=== PATIENT | male | born 1995 | race Caucasian/White ===

== ENCOUNTER 2018-02-23 13:10 | Emergency (ER) | payer MEDICAID, OTHER ==
[~2018-02-23] VITALS: Ht 188 cm; Wt 115.0 kg
[2018-02-23] MEDS ORDERED: SODIUM CHLORIDE 0.9% 1000ML BAG (SEPSIS BOLUS) IV ONE (14:00)
[2018-02-23] MEDS ORDERED: ACETAMINOPHEN 500MG TABLET PO ONE (14:00)
[2018-02-23 14:31] LABS: BASOPHILS % 0.3 % (0.0-2.0); EOSINOPHILS % 0.2 % (0.0-5.0); HEMATOCRIT. 39.4 % (42.0-52.0); HEMOGLOBIN. 13.7 g/dL (14.0-18.0); LYMPHOCYTES % 11.1 % (20.0-50.0); MEAN CORPUSCULAR HEMOGLOBIN 28.9 pg (28.0-32.0); MEAN CORPUSCULAR VOLUME 83.3 fL (80.0-94.0); MEAN PLATELET VOLUME 8.7 fl (7.4-10.4); MONOCYTES % 9.4 % (2.0-8.0); PLATELET 214 x1000/uL (130-400); RED BLOOD CELL COUNT 4.73 mill/uL (4.7-6.1); RED CELL DISTRIBUTION WIDTH 13.1 % (11.6-14.6)
[2018-02-23 14:35] LABS: INR 1.1; PROTHROMBIN TIME 11.7 sec (9.4-11.6)
[2018-02-23 14:40] LABS: CHLORIDE 105 mEq/L (98-107)
[2018-02-23] MEDS: KETOROLAC 30MG/ML VIAL IV ONE ×2 (16:30→17:44)
[2018-02-23 18:45] VITALS: BP 118/76
[2018-02-23 19:30] LABS: CLARITY URINE CLEAR (CLEAR); COLOR URINE YELLOW (YELLOW); KETONES URINE TRACE (NEGATIVE); LEUKOCYTE ESTERASE URINE NEGATIVE (NEGATIVE); NITRITE URINE NEGATIVE (NEGATIVE); OCCULT BLOOD URINE NEGATIVE (NEGATIVE); PH URINE 6.5 (4.5-8.0); PROTEIN URINE NEGATIVE (NEGATIVE); UROBILINOGEN URINE 0.2 E.U./dL (0.2-1.0)
== END 2018-02-23 19:23 | disposition home or self-care (01) ==
LOC: ER 15:30
DX: J02.9 Acute pharyngitis, unspecified (principal); J45.909 Unspecified asthma, uncomplicated; R00.0 Tachycardia, unspecified; Z88.2 Allergy status to sulfonamides
CPT/HCPCS: 36415; 71045; 80053; 81003; 83605; 85025; 85610; 87040; 87070; 87430; 93005; 96361; 96374; 99285; J1885; J7030; J7040; Z7610

== ENCOUNTER 2018-06-28 19:00 | Emergency (ER) | payer OTHER ==
[~2018-06-28] VITALS: Ht 185.4 cm; Wt 109.0 kg
[2018-06-28] MEDS ORDERED: ALBUTEROL (0.083%) 2.5MG/3ML NEB HHN STA (20:09)
[2018-06-28 22:16] VITALS: BP 128/72
== END 2018-06-28 22:32 | disposition home or self-care (01) ==
LOC: ER 19:00
DX: J45.901 Unspecified asthma with (acute) exacerbation (principal)
CPT/HCPCS: 71045; 93005; 94640; 99284; J7611; Z7610

== ENCOUNTER 2018-10-07 18:05 | Emergency (ER) | payer OTHER ==
[~2018-10-07] VITALS: Ht 188 cm; Wt 113.6 kg
[2018-10-07] MEDS ORDERED: KETOROLAC 60MG/2ML VIAL IM ONE (21:30)
[2018-10-07 21:35] VITALS: BP 146/90
== END 2018-10-07 23:26 | disposition home or self-care (01) ==
LOC: ER 18:05
DX: M54.5 Low back pain (principal); M25.511 Pain in right shoulder; J45.909 Unspecified asthma, uncomplicated; Z88.2 Allergy status to sulfonamides; X50.9XXA Other and unspecified overexertion or strenuous movements or postures, initial encounter; Y93.89 Activity, other specified; Y92.89 Other specified places as the place of occurrence of the external cause; Y99.8 Other external cause status
CPT/HCPCS: 72100; 73030; 96372; 99283; J1885

== ENCOUNTER 2020-01-12 21:23 | Inpatient (IN) | payer OTHER ==
[~2020-01-12] VITALS: Ht 182.9 cm; Wt 122.5 kg
[2020-01-12] MEDS ORDERED: SODIUM CHLORIDE 0.9% 1000ML BAG (SEPSIS BOLUS) IV ONE (23:15)
[2020-01-12] MEDS ORDERED: KETOROLAC 30MG/ML VIAL IV ONE (23:30)
[2020-01-12 23:53] LABS: BASOPHILS % 0.8 % (0.0-2.0); EOSINOPHILS % 6.1 % (0.0-5.0); HEMATOCRIT. 42.4 % (42.0-52.0); HEMOGLOBIN. 14.8 g/dL (14.0-18.0); LYMPHOCYTES % 27.9 % (20.0-50.0); MEAN CORPUSCULAR HEMOGLOBIN 28.5 pg (28.0-32.0); MEAN CORPUSCULAR VOLUME 81.5 fL (80.0-94.0); MEAN PLATELET VOLUME 8.8 fl (7.4-10.4); NEUTROPHILS % 57.2 % (40.0-76.0); PLATELET 262 x1000/uL (130-400); RED CELL DISTRIBUTION WIDTH 13.5 % (11.6-14.6)
[2020-01-12 23:54] LABS: CHLORIDE 106 mEq/L (98-107); PROTHROMBIN TIME 10.5 sec (9.6-11.0)
[2020-01-13] MEDS ORDERED: ONDANSETRON HCL 4MG/2ML INJ IV PRN (16:45)
[2020-01-13] MEDS ORDERED: HYDROCODONE/ACETAMINOPHEN 5/325MG TABLET PO PRN (16:45)
[2020-01-13] MEDS ORDERED: ACETAMINOPHEN 325MG TABLET PO PRN (16:45)
[2020-01-13] MEDS ORDERED: IPRATROPIUM/ALBUTEROL 0.5-3(2.5)MG/3ML NEB HHN PRN (16:45)
[2020-01-13] MEDS ORDERED: AZITHROMYCIN 500 MG in DEXT 5% WATER 250 ML IV SCH (21:00)
[2020-01-14] MEDS: ENOXAPARIN 30MG/0.3ML SYR SUBCUT SCH ×2 (00:23→11:08)
[2020-01-14 06:26] LABS: BASOPHILS % 0.8 % (0.0-2.0); EOSINOPHILS % 6.9 % (0.0-5.0); HEMATOCRIT. 40.9 % (42.0-52.0); HEMOGLOBIN. 14.4 g/dL (14.0-18.0); LYMPHOCYTES % 29.4 % (20.0-50.0); MEAN CORPUSCULAR HEMOGLOBIN 28.6 pg (28.0-32.0); MEAN CORPUSCULAR VOLUME 80.9 fL (80.0-94.0); MEAN PLATELET VOLUME 8.8 fl (7.4-10.4); MONOCYTES % 9.3 % (2.0-8.0); NEUTROPHILS % 53.6 % (40.0-76.0); PLATELET 257 x1000/uL (130-400); RED BLOOD CELL COUNT 5.05 mill/uL (4.7-6.1); RED CELL DISTRIBUTION WIDTH 13.3 % (11.6-14.6)
[2020-01-14 06:40] LABS: CHLORIDE 108 mEq/L (98-107)
[2020-01-14 06:47] VITALS: BP 124/80
[2020-01-14 06:52] LABS: CREATINE KINASE MB FRACTION < 1.0 ng/mL (0.5-3.6); LDL CHOLESTEROL 129 mg/dL (5-100)
[2020-01-14 06:53] LABS: HDL CHOLESTEROL 28 mg/dL (40-59)
[2020-01-14 06:54] LABS: T4 FREE 1.17 ng/dL (0.76-1.46)
[2020-01-14 06:56] LABS: CREATINE KINASE 82 IU/L (39-308)
[2020-01-14 08:30] VITALS: BP 128/78
[2020-01-14 12:15] VITALS: BP 124/75
[2020-01-14 16:10] VITALS: BP 129/79
[2020-01-14 20:00] VITALS: BP 125/76
[2020-01-14] MEDS ORDERED: ENOXAPARIN 30MG/0.3ML SYR SUBCUT ONE (21:48)
[2020-01-14] MEDS ORDERED: AZITHROMYCIN 500 MG in DEXT 5% WATER 250 ML IV SCH (23:00)
[2020-01-15] VITALS: BP 130/73
[2020-01-15 04:00] VITALS: BP 128/76
[2020-01-15 08:00] VITALS: BP 134/83
[2020-01-15] MEDS ORDERED: ENOXAPARIN 30MG/0.3ML SYR SUBCUT ONE ×2 (08:13→19:56)
[2020-01-15] MEDS: ENOXAPARIN 30MG/0.3ML SYR SUBCUT SCH ×2 (08:59→20:03)
[2020-01-15 12:00] VITALS: BP 130/74
[2020-01-15 16:00] VITALS: BP 123/78
[2020-01-15 20:00] VITALS: BP 123/80
[2020-01-15] MEDS ORDERED: AZITHROMYCIN 500MG in DEXTROSE 5% WATER 250ML IV SCH (21:00)
[2020-01-16] VITALS: BP 116/85
[2020-01-16 04:00] VITALS: BP 109/62
[2020-01-16 08:00] VITALS: BP 114/68
[2020-01-16] MEDS: ENOXAPARIN 30MG/0.3ML SYR SUBCUT SCH (08:51)
[2020-01-16] MEDS ORDERED: ENOXAPARIN 30MG/0.3ML SYR SUBCUT ONE (08:52)
[2020-01-16] MEDS ORDERED: ALBU90AE INH (11:00)
[2020-01-16 11:39] VITALS: BP 114/68
[2020-01-16 12:00] VITALS: BP 126/75
[2020-01-16 12:09] LABS: BASOPHILS % 0.7 % (0.0-2.0); EOSINOPHILS % 5.4 % (0.0-5.0); HEMATOCRIT. 45.7 % (42.0-52.0); HEMOGLOBIN. 15.6 g/dL (14.0-18.0); LYMPHOCYTES % 25.1 % (20.0-50.0); MEAN CORPUSCULAR VOLUME 81.7 fL (80.0-94.0); MEAN PLATELET VOLUME 8.8 fl (7.4-10.4); MONOCYTES % 5.2 % (2.0-8.0); NEUTROPHILS % 63.6 % (40.0-76.0); PLATELET 273 x1000/uL (130-400); RED BLOOD CELL COUNT 5.59 mill/uL (4.7-6.1); RED CELL DISTRIBUTION WIDTH 13.2 % (11.6-14.6)
[2020-01-16 12:16] LABS: CHLORIDE 103 mEq/L (98-107)
[2020-01-16] MEDS ORDERED: AZITHROMYCIN 500 MG TABLET PO SCH (21:00)
== END 2020-01-16 14:43 | disposition home or self-care (01) | DRG 145 ==
LOC: ER 21:34 → 7EST 01-13 10:26 → ENRESERV 01-13 17:29
PROVIDERS: ADMIT Internal Medicine; ATTEND Internal Medicine
DX: J20.9 Acute bronchitis, unspecified (principal); J18.9 Pneumonia, unspecified organism; E66.9 Obesity, unspecified; R50.9 Fever, unspecified; Z79.899 Other long term (current) drug therapy; Z68.36 Body mass index [BMI] 36.0-36.9, adult
CPT/HCPCS: 36415; 71045; 80048; 80053; 80061; 82550; 82553; 83605; 83880; 84145; 84439; 84443; 84484; 85025; 87420; 87635; 87804; 93005; 99291; J0456; J1650; J1885; J7030; J7060; U0002